=== PATIENT | male | born 1955 | race Caucasian/White ===

== ENCOUNTER 2020-09-08 07:25 | Day surgery (SDC) | payer MEDICARE, OTHER ==
[~2020-09-08] VITALS: Ht 167.6 cm; Wt 78.0 kg
[~2020-09-08 07:25] MED LIST: AMLODIPINE BESY10 MG PO; AVAPRO PO; JANUVIA100 MG PO; JARDIANCE25 MG; LIPITOR40 M1 PO; SILDENAFIL100 MG PO
[2020-09-08 09:59] VITALS: BP 118/75
== END 2020-09-08 10:16 | disposition home or self-care (01) ==
LOC: ENDO 07:25 → ORM 09:45 → ENDO 10:16
PROVIDERS: ATTEND Surgery
PROC: 0DBH8ZX Excision of Cecum, Via Natural or Artificial Opening Endoscopic, Diagnostic (ICD-10-PCS; principal; 2020-09-08)
PROC: 0DJ08ZZ Inspection of Upper Intestinal Tract, Via Natural or Artificial Opening Endoscopic (ICD-10-PCS; 2020-09-08)
DX: Z12.11 Encounter for screening for malignant neoplasm of colon (principal); D12.0 Benign neoplasm of cecum; K57.30 Diverticulosis of large intestine without perforation or abscess without bleeding; K64.8 Other hemorrhoids; K44.9 Diaphragmatic hernia without obstruction or gangrene; I10 Essential (primary) hypertension; E11.9 Type 2 diabetes mellitus without complications; Z86.010 Personal history of colon polyps

== ENCOUNTER 2020-11-17 10:24 | Emergency (ER) | payer MEDICARE, OTHER ==
[~2020-11-17] VITALS: Ht 167.6 cm; Wt 90.0 kg
[2020-11-17] MEDS ORDERED: ZPAK PO (14:44)
[2020-11-17] MEDS ORDERED: DECADRON4 MG PO (14:44)
[2020-11-17] MEDS ORDERED: ONDANSETRON4 MG PO (17:00)
[2020-11-17] MEDS ORDERED: ALLEGRA ALLERGY60 MG PO (17:00)
[2020-11-17 17:42] VITALS: BP 140/66
== END 2020-11-17 17:55 | disposition home or self-care (01) ==
LOC: ED 10:24
DX: U07.1 COVID-19 (principal); I10 Essential (primary) hypertension; E78.5 Hyperlipidemia, unspecified; E11.9 Type 2 diabetes mellitus without complications